=== PATIENT | male | born 1960 | race Hispanic/Latino ===

== ENCOUNTER → 2022-04-25 | Outpatient (CLI) | payer BC | LOC: SLEEPLAB 19:30 | PROVIDERS: ATTEND Internal Medicine | DX: G47.33 Obstructive sleep apnea (adult) (pediatric) (principal); R06.83 Snoring; G47.10 Hypersomnia, unspecified; R63.5 Abnormal weight gain; G47.00 Insomnia, unspecified | CPT/HCPCS: 95810 ==

== ENCOUNTER 2022-05-17 19:00 | Outpatient (CLI) | payer BC | END 2022-05-17 19:01 | disposition home or self-care (01) | LOC: SLEEPLAB 19:00 | PROVIDERS: ATTEND Internal Medicine | DX: G47.33 Obstructive sleep apnea (adult) (pediatric) (principal); R06.83 Snoring; G47.00 Insomnia, unspecified | CPT/HCPCS: 95811 ==

== ENCOUNTER 2022-09-05 06:09 | Day surgery (SDC) | payer BC ==
[~2022-09-05 06:09] MED LIST: EPINEPHrine 0.3 MG in Ophthalmic Irrigation Solution 500 ML IRR SCH
[2022-09-05] MEDS ORDERED: fentaNYL 50 mcg/mL 1 mL Vial ONE (06:46)
[2022-09-05] MEDS ORDERED: Midazolam HCl 2 mg/2 ml Vial ONE (06:46)
[2022-09-05] MEDS ORDERED: PROPOFOL 20 ML ONE (06:46)
[2022-09-05] MEDS ORDERED: Cyclopentolate 1% Opth Drop 2 ML BOT ONE (06:55)
[2022-09-05] MEDS ORDERED: Phenylephrine 2.5% Ophth Soln 5 ML BOT ONE (06:55)
[2022-09-05] MEDS ORDERED: CEFAZOLIN 1 GM VIAL ONE (07:44)
[2022-09-05] MEDS ORDERED: Maxitrol 0.1% Opth Oint 3.5 GM TUBE ONE (07:44)
[2022-09-05] MEDS ORDERED: Bupivacaine 0.75% 10 ML VIAL ONE (07:44)
[2022-09-05] MEDS ORDERED: Lidocaine 1% PF 5 ML VIAL ONE (07:44)
[2022-09-05] MEDS ORDERED: Lidocaine 4% PF 5 ML AMP ONE (07:44)
[2022-09-05] MEDS ORDERED: Triamcinolone 40 MG/ML VIAL ONE (07:44)
== END 2022-09-05 09:10 | disposition home or self-care (01) ==
LOC: SDC 06:09
PROVIDERS: ATTEND Ophthalmology Retina Specialist
PROC: 08T43ZZ Resection of Right Vitreous, Percutaneous Approach (ICD-10-PCS; principal; 2022-09-05)
DX: H33.021 Retinal detachment with multiple breaks, right eye (principal)
CPT/HCPCS: 67025; J0171; J0690; J2250; J2704; J3010; J3301; J3490

== ENCOUNTER 2022-10-17 06:15 | Day surgery (SDC) | payer BC ==
[2022-10-16 11:30] VITALS: BMI 32.5
[2022-10-17] MEDS ORDERED: Cyclopentolate 1% Opth Drop 2 ML BOT ONE ×4 (06:27→06:29)
[2022-10-17] MEDS ORDERED: Phenylephrine 10% OPTH 5 ML BOT ONE (06:31)
[2022-10-17] MEDS ORDERED: Midazolam HCl 2 mg/2 ml Vial ONE (07:48)
[2022-10-17] MEDS ORDERED: PROPOFOL 20 ML ONE (07:48)
[2022-10-17] MEDS ORDERED: fentaNYL 50 mcg/mL 1 mL Vial ONE (07:48)
[2022-10-17] MEDS ORDERED: Lidocaine 4% PF 5 ML AMP ONE (08:09)
[2022-10-17] MEDS ORDERED: Lidocaine 1% PF 5 ML VIAL ONE (08:09)
[2022-10-17] MEDS ORDERED: CEFAZOLIN 1 GM VIAL ONE (08:09)
[2022-10-17] MEDS ORDERED: Triamcinolone 40 MG/ML VIAL ONE (08:09)
[2022-10-17] MEDS ORDERED: Indocyanine Green 25 MG/10 ML VIAL ONE (08:09)
[2022-10-17] MEDS ORDERED: Bupivacaine 0.75% 10 ML VIAL ONE (08:09)
[2022-10-17] MEDS ORDERED: Maxitrol 0.1% Opth Oint 3.5 GM TUBE ONE (08:09)
== END 2022-10-17 09:22 | disposition home or self-care (01) ==
LOC: SDC 06:15
PROVIDERS: ATTEND Ophthalmology Retina Specialist
PROC: 08T43ZZ Resection of Right Vitreous, Percutaneous Approach (ICD-10-PCS; principal; 2022-10-17)
PROC: 08NE3ZZ Release Right Retina, Percutaneous Approach (ICD-10-PCS; principal; 2022-10-17)
DX: H35.371 Puckering of macula, right eye (principal); H35.21 Other non-diabetic proliferative retinopathy, right eye
CPT/HCPCS: C1814; J0171; J0690; J2250; J2704; J3010; J3301; J3490

== ENCOUNTER 2023-03-27 07:48 | Day surgery (SDC) | payer BC ==
[2023-03-16 14:23] VITALS: BMI 32.5
[~2023-03-27 07:48] MED LIST changes: +Midazolam HCl 2 mg/2 ml Vial ONE; +PROPOFOL 20 ML ONE; +fentaNYL 50 mcg/mL 1 mL Vial ONE
[2023-03-27] MEDS ORDERED: Cyclopentolate W/ Phenylephrin 5 ML BOT ONE (09:12)
[2023-03-27] MEDS ORDERED: Maxitrol 0.1% Opth Oint 3.5 GM TUBE ONE (10:01)
[2023-03-27] MEDS ORDERED: Triamcinolone 40 MG/ML VIAL ONE (10:01)
[2023-03-27] MEDS ORDERED: CEFAZOLIN 1 GM VIAL ONE (10:01)
[2023-03-27] MEDS ORDERED: Lidocaine 1% PF 5 ML VIAL ONE (10:01)
[2023-03-27] MEDS ORDERED: Bupivacaine 0.75% 10 ML VIAL ONE (10:01)
[2023-03-27] MEDS ORDERED: Lidocaine 4% PF 5 ML AMP ONE (10:01)
== END 2023-03-27 11:07 | disposition home or self-care (01) ==
LOC: SDC 07:48
PROVIDERS: ATTEND Ophthalmology Retina Specialist
PROC: 08953ZZ Drainage of Left Vitreous, Percutaneous Approach (ICD-10-PCS; principal; 2023-03-27)
DX: H43.391 Other vitreous opacities, right eye (principal)
CPT/HCPCS: J0171; J0690; J2250; J2704; J3010; J3301; J3490